=== PATIENT | female | born 2000 | race Caucasian/White ===

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

== ENCOUNTER 2019-03-22 01:38 | Emergency (ER) | payer OTHER ==
[~2019-03-22] VITALS: Ht 152.4 cm; Wt 118.2 kg
[~2019-03-22 01:38] MED LIST: INDERAL80 MG PO; PERCOCET 325 MG1 TAB PO; ZOFRAN ODT4 MG PO; ZOLOFT 50MG50 MG PO
[2019-03-22 02:21] LABS: COLLECTION METHOD CLEAN CATCH
[2019-03-22 02:30] LABS: MUCOUS Present /lpf; PH 5 (5-8); URINE APPEARANCE Cloudy; URINE BACTERIA None Seen /hpf; URINE BILIRUBIN Negative (NEGATIVE); URINE BLOOD 3+ (NEGATIVE); URINE CALCIUM OXALATE CRYSTAL Present /hpf; URINE COLOR Yellow; URINE GLUCOSE Negative (NEGATIVE); URINE KETONE Negative (NEGATIVE); URINE LEUKOCYTE ESTERASE 2+ (NEGATIVE); URINE NITRATE Negative (NEGATIVE); URINE PROTEIN(semi-quant) 1+ (NEGATIVE); URINE RBC >50 /hpf; URINE UROBILINOGEN Negative (NEGATIVE)
[2019-03-22] MEDS ORDERED: ZOFRAN ODT4 MG PO (03:25)
[2019-03-22] MEDS ORDERED: NORCO 325 MG-51 TAB PO (03:26)
[2019-03-22 04:53] VITALS: BP 119/76; PULSE 66; TEMP 98.4
== END 2019-03-22 04:59 | disposition home or self-care (01) ==
LOC: COL.ER 01:38
PROVIDERS: Emergency Medicine
DX: N23 Unspecified renal colic (principal); Z90.89 Acquired absence of other organs; Z87.442 Personal history of urinary calculi
CPT/HCPCS: J1885; J2550; J7030

== ENCOUNTER 2020-01-30 09:54 | Emergency (ER) | payer OTHER ==
[~2020-01-30] VITALS: Ht 165.1 cm; Wt 125.0 kg
[~2020-01-30 09:54] MED LIST changes: +NORCO 325 MG-51 TAB PO
[2020-01-30 10:20] VITALS: TEMP 98.7
[2020-01-30 11:50] LABS: COLLECTION METHOD CLEAN CATCH
[2020-01-30] MEDS ORDERED: D3-5050000 IU PO (11:55)
[2020-01-30 11:59] LABS: MUCOUS Present /lpf; PH 5 (5-8); SQUAMOUS EPITHELIAL 0-2 /hpf; URINE APPEARANCE Hazy; URINE BACTERIA None Seen /hpf; URINE BILIRUBIN Negative (NEGATIVE); URINE BLOOD 3+ (NEGATIVE); URINE COLOR Yellow; URINE GLUCOSE Negative (NEGATIVE); URINE KETONE Negative (NEGATIVE); URINE LEUKOCYTE ESTERASE Trace (NEGATIVE); URINE NITRATE Negative (NEGATIVE); URINE PROTEIN(semi-quant) 1+ (NEGATIVE); URINE RBC >50 /hpf; URINE UROBILINOGEN Negative (NEGATIVE)
[2020-01-30 12:04] LABS: BASO % 0.4 % (0.0-2.0); EOS % 0.2 % (0-4.0); GRAN # 7.1 (1.4-6.5); HEMATOCRIT 40.8 % (35.0-45.0); HEMOGLOBIN 13.2 g/dl (12.0-15.0); LYMPH # 1.2 (1.2-3.4); LYMPH % 13.8 % (20.0-51.0); MEAN CELL VOLUME 88 fl (80.0-95.0); MEAN CORPUSCULAR HEMOGLOBIN 28 pg (26.0-32.0); MEAN CORPUSCULAR HGB CONC 32 g/dl (33.0-37.0); MEAN PLATELET VOLUME 10.8 fl (7.4-10.4); MONO # 0.5 (0.1-0.6); PLATELET COUNT 265 K/mm3 (130-400); RED BLOOD COUNT 4.65 M/mm3 (4.10-5.30); REDCELL DISTRIBUTION WIDTH-CV 12.8 % (11.5-14.5)
[2020-01-30 12:06] LABS: ALBUMIN 4.3 gm/dL (3.5-5.0); BILIRUBIN,TOTAL 0.5 mg/dL (0.0-1.0); C-REACTIVE PROTEIN 2.4 mg/dL (0.0-0.9); CREATININE, serum 0.97 (0.52-1.25); POTASSIUM 4.4 mmol/L (3.4-5.0); TOTAL PROTEIN 7.6 gm/dL (6.4-8.2)
[2020-01-30] MEDS ORDERED: CEFTIN500 MG PO (14:30)
[2020-01-30] MEDS ORDERED: NORCO 325 MG-51 TAB PO (14:36)
[2020-01-30] MEDS ORDERED: ZOFRAN ODT4 MG PO (14:36)
[2020-01-30 14:50] VITALS: BP 121/68; PULSE 69
== END 2020-01-30 14:55 | disposition home or self-care (01) ==
LOC: COL.ER 09:54
PROVIDERS: Emergency Medicine
DX: N39.0 Urinary tract infection, site not specified (principal); N23 Unspecified renal colic; Z32.02 Encounter for pregnancy test, result negative; Z87.442 Personal history of urinary calculi; Z90.49 Acquired absence of other specified parts of digestive tract
CPT/HCPCS: J0696; J2270; J2405; J7030

== ENCOUNTER → 2021-03-13 | Outpatient (CLI) | payer OTHER ==
[~2021-03-13] MED LIST changes: +CEFTIN500 MG PO; +D3-5050000 IU PO
== END ==
LOC: COL.RAD 12:20
DX: N30.01 Acute cystitis with hematuria (principal); N13.30 Unspecified hydronephrosis